=== PATIENT | female | born 1990 | race Caucasian/White ===

== ENCOUNTER 2017-10-03 20:46 | Outpatient (CLI) | payer MEDICAID ==
[2017-10-03 21:59] LABS: ADD UMIC NO; UR ASCORBIC ACID NEGATIVE (NEGATIVE); UR BILIRUBIN (Dip) NEGATIVE (NEGATIVE); UR BLOOD (Dip) NEGATIVE (NEGATIVE); UR CLARITY CLEAR (CLEAR); UR COLOR COLORLESS (YELLOW); UR GLUCOSE (Dip) NEGATIVE (NEGATIVE); UR KETONES (Dip) NEGATIVE (NEGATIVE); UR LEUKOCYTE ESTERASE (Dip) NEGATIVE Leu/ul (NEGATIVE); UR NITRITE (Dip) NEGATIVE (NEGATIVE); UR SPECIFIC GRAVITY (Dip) 1.004 (1.003-1.030); UR TOTAL PROTEIN (Dip) NEGATIVE (NEGATIVE); UR UROBILINOGEN (Dip) NEGATIVE (NEGATIVE)
== END 2017-10-03 22:45 | disposition home or self-care (01) ==
LOC: OBT 20:46 → L-D 20:47
DX: O26.892 Other specified pregnancy related conditions, second trimester (principal); Z3A.23 23 weeks gestation of pregnancy; R10.2 Pelvic and perineal pain
CPT/HCPCS: 81003; 87086

== ENCOUNTER 2017-12-26 12:45 | Outpatient (CLI) | payer MEDICAID ==
[2017-12-26 14:56] LABS: ADD UMIC YES; UR ASCORBIC ACID NEGATIVE (NEGATIVE); UR BILIRUBIN (Dip) NEGATIVE (NEGATIVE); UR BLOOD (Dip) NEGATIVE (NEGATIVE); UR CLARITY CLOUDY (CLEAR); UR COLOR YELLOW (YELLOW); UR GLUCOSE (Dip) NEGATIVE (NEGATIVE); UR KETONES (Dip) NEGATIVE (NEGATIVE); UR LEUKOCYTE ESTERASE (Dip) NEGATIVE Leu/ul (NEGATIVE); UR MUCUS FEW /HPF (NONE SEEN); UR NITRITE (Dip) NEGATIVE (NEGATIVE); UR RBC 0 /HPF (0-5); UR SPECIFIC GRAVITY (Dip) 1.014 (1.003-1.030); UR TOTAL PROTEIN (Dip) NEGATIVE (NEGATIVE); UR UROBILINOGEN (Dip) NEGATIVE (NEGATIVE); UR WBC 1 /HPF (0-5)
== END 2017-12-26 16:55 | disposition home or self-care (01) ==
LOC: OBT 12:45 → L-D 12:45 → OBT 16:55
DX: O62.9 Abnormality of forces of labor, unspecified (principal); Z3A.35 35 weeks gestation of pregnancy
CPT/HCPCS: 76815; 76818; 81001

== ENCOUNTER 2018-01-21 07:43 | Inpatient (IN) | payer MEDICAID ==
[2018-01-21] MEDS ORDERED: LACTATED RINGER'S 1,000 ML IV (08:24)
[2018-01-21] MEDS ORDERED: OXYTOCIN 30 UNITS/LR 500 ML IV ×4 (08:30)
[2018-01-21] MEDS ORDERED: METHYLERGONOVINE 0.2 MG INJ IM (08:30)
[2018-01-21] MEDS ORDERED: LIDOCAINE 1% (MPF) 30 ML INJ INJ (08:30)
[2018-01-21] MEDS ORDERED: CARBOPROST 250 MCG INJ IM (08:30)
[2018-01-21] MEDS ORDERED: MISOPROSTOL 200 MCG TAB PR (08:30)
[2018-01-21] MEDS: AMPICILLIN 2 GM/NS (PMX) 100 ML IV (09:17)
[2018-01-21] MEDS: LACTATED RINGER'S 1,000 ML IV ×2 (09:18→17:06)
[2018-01-21 09:36] LABS: ADD MAN DIFF? NO
[2018-01-21 09:41] LABS: WHITE BLOOD COUNT 10.3 10^3/ul (4.8-10.8)
[2018-01-21 09:41] LABS: BASOPHILS % 0.3 % (0.0-2.0); EOSINOPHILS % 0.3 % (0.0-7.0); HEMATOCRIT 37.9 % (37.0-47.0); HEMOGLOBIN 13.2 g/dl (12.0-16.0); LYMPHOCYTES # 0.9 10^3/ul (0.8-2.9); LYMPHOCYTES % 8.3 % (15.0-51.0); MEAN CORPUSCULAR HEMOGLOBIN 31.4 pg (29.0-33.0); MEAN CORPUSCULAR HGB CONC 34.8 g/dl (32.0-37.0); MONOCYTE # 0.6 10^3/ul (0.3-0.9); MONOCYTES % 5.7 % (0.0-11.0); NEUTROPHIL # 8.7 10^3/ul (1.6-7.5); PLATELET COUNT 150 10^3/UL (140-415); RED BLOOD COUNT 4.21 10^6/ul (4.20-5.40); RED CELL DISTRIBUTION WIDTH 13.8 % (11.5-14.5)
[2018-01-21 10:00] LABS: INR 0.84; PROTIME 11.6 Sec (11.9-14.9); PT RATIO 0.9
[2018-01-21 13:14] LABS: HEPATITIS B SURFACE ANTIGEN NEGATIVE (NEGATIVE)
[2018-01-21] MEDS: AMPICILLIN 1 GM/NS (PMX) 50 ML IV ×3 (13:15→22:02)
[2018-01-21 22:26] LABS: RAPID PLASMA REAGIN NONREACTIVE (NR)
[2018-01-22] MEDS ORDERED: DIPHENHYDRAMINE 50 MG INJ (00:11)
[2018-01-22] MEDS ORDERED: DIPHENHYDRAMINE 25 MG CAP (00:12)
[2018-01-22] MEDS: ACETAMINOPHEN 325 MG TAB PO (00:15)
[2018-01-22] MEDS: DIPHENHYDRAMINE 25 MG CAP PO (00:22)
[2018-01-22] MEDS: BUTORPHANOL 2 MG INJ IV (02:05)
[2018-01-22] MEDS: AMPICILLIN 1 GM/NS (PMX) 50 ML IV (02:07)
[2018-01-22] MEDS: LACTATED RINGER'S 1,000 ML IV (02:08)
[2018-01-22] MEDS: OXYTOCIN 30 UNITS/LR 500 ML IV (06:45)
[2018-01-22] MEDS ORDERED: OXYCODONE/ASPIRIN (4.88/325) TAB PO (07:00)
[2018-01-22] MEDS ORDERED: MISOPROSTOL 200 MCG TAB PR (07:00)
[2018-01-22] MEDS ORDERED: CARBOPROST 250 MCG INJ IM (07:00)
[2018-01-22] MEDS ORDERED: METHYLERGONOVINE 0.2 MG INJ IM (07:00)
[2018-01-22] MEDS ORDERED: OXYTOCIN 30 UNITS/LR 500 ML IV (07:00)
[2018-01-22] MEDS ORDERED: ZOLPIDEM 5 MG TAB PO ×2 (07:00)
[2018-01-22] MEDS: SENNA/DOCUSATE NA (8.6MG/50MG) TAB PO ×2 (09:43→21:23)
[2018-01-22] MEDS: WITCH HAZEL/GLYCERIN PAD PR (09:43)
[2018-01-22] MEDS: BENZOCAINE 20% 56 ML SPRAY TOP (09:44)
[2018-01-22] MEDS: OXYCODONE/ASPIRIN (4.88/325) TAB PO (09:44)
[2018-01-22] MEDS: LANOLIN HPA 1 PKT TOP (09:44)
[2018-01-22] MEDS: IBUPROFEN 600 MG TAB PO ×2 (11:56→17:03)
[2018-01-23] MEDS: IBUPROFEN 600 MG TAB PO ×5 (05:47→23:37)
[2018-01-23 08:07] LABS: ADD MAN DIFF? NO
[2018-01-23 08:11] LABS: BASOPHILS % 0.5 % (0.0-2.0); EOSINOPHILS # 0.1 10^3/ul (0.0-0.5); EOSINOPHILS % 1.3 % (0.0-7.0); LYMPHOCYTES # 1.4 10^3/ul (0.8-2.9); MEAN CORPUSCULAR HEMOGLOBIN 31.4 pg (29.0-33.0); MEAN CORPUSCULAR HGB CONC 33.3 g/dl (32.0-37.0); MEAN CORPUSCULAR VOLUME 94.2 fl (82.0-101.0); MEAN PLATELET VOLUME 11.3 fl (7.4-10.4); MONOCYTE # 0.5 10^3/ul (0.3-0.9); MONOCYTES % 6.7 % (0.0-11.0); NEUTROPHIL # 5.7 10^3/ul (1.6-7.5); NEUTROPHILS % 71.6 % (39.0-77.0); PLATELET COUNT 142 10^3/UL (140-415); RED BLOOD COUNT 3.82 10^6/ul (4.20-5.40); RED CELL DISTRIBUTION WIDTH 14.1 % (11.5-14.5)
[2018-01-23] MEDS: SENNA/DOCUSATE NA (8.6MG/50MG) TAB PO ×2 (09:17→21:32)
[2018-01-23] MEDS ORDERED: LANOLIN HPA 1 PKT TOP (23:30)
[2018-01-23] MEDS ORDERED: OXYCODONE/ASPIRIN (4.88/325) TAB PO ×2 (23:30)
[2018-01-23] MEDS ORDERED: CARBOPROST 250 MCG INJ IM (23:30)
[2018-01-23] MEDS ORDERED: DIPHTH/TET/ACEL PERTUSS (ADULT) 0.5 ML VIAL IM* (23:30)
[2018-01-23] MEDS ORDERED: MISOPROSTOL 200 MCG TAB PR (23:30)
[2018-01-23] MEDS ORDERED: ZOLPIDEM 5 MG TAB PO (23:30)
[2018-01-23] MEDS ORDERED: WITCH HAZEL/GLYCERIN PAD PR (23:30)
[2018-01-23] MEDS ORDERED: OXYTOCIN 30 UNITS/LR 500 ML IV (23:30)
[2018-01-23] MEDS ORDERED: METHYLERGONOVINE 0.2 MG INJ IM (23:30)
[2018-01-23] MEDS ORDERED: BENZOCAINE 20% 56 ML SPRAY TOP (23:30)
[2018-01-24] MEDS: IBUPROFEN 600 MG TAB PO ×2 (05:40→13:32)
[2018-01-24] MEDS ORDERED: DIPHTH/TET/ACEL PERTUSS (ADULT) 0.5 ML VIAL IM* (09:00)
[2018-01-24] MEDS: SENNA/DOCUSATE NA (8.6MG/50MG) TAB PO (09:02)
== END 2018-01-24 15:20 | disposition home or self-care (01) | DRG 807 ==
LOC: OBT 07:43 → PP1 01-22 06:27 → L-D 07:43 → OBT 08:22 → L-D 08:20
PROVIDERS: Obstetrics & Gynecology
PROC: 10E0XZZ Delivery of Products of Conception, External Approach (ICD-10-PCS; principal; 2018-01-22)
PROC: 0UQMXZZ Repair Vulva, External Approach (ICD-10-PCS; 2018-01-22)
PROC: 0HQ9XZZ Repair Perineum Skin, External Approach (ICD-10-PCS; 2018-01-22)
DX: O71.82 Other specified trauma to perineum and vulva (principal); Z37.0 Single live birth; O70.9 Perineal laceration during delivery, unspecified; Z22.330 Carrier of Group B streptococcus; Z3A.38 38 weeks gestation of pregnancy
CPT/HCPCS: 76815; 85025; 85610; 85730; 86592; 86850; 86900; 86901; 87340